=== PATIENT | female | born 1935 | race Caucasian/White ===

== ENCOUNTER 2018-03-13 13:00 | Outpatient (RCR) | payer MEDICARE, SELFPAY | END 2018-03-13 14:39 | disposition home or self-care (01) | LOC: PT 13:00 | PROVIDERS: Visit Provider Family Medicine | DX: R53.1 Weakness (principal); R26.89 Other abnormalities of gait and mobility | CPT/HCPCS: 97110; 97112; 97116; 97164 ==

== ENCOUNTER → 2018-05-21 11:16 | Outpatient (CLI) | payer MEDICARE, SELFPAY ==
[2018-05-21 13:33] LABS: Basophils % 0.4 % (0.1-2.0); Eosinophils # 0.2 K/mm3 (0.0-0.4); Hematocrit 36.2 % (37.0-47.0); Hemoglobin 11.2 g/dL (12.2-16.2); Lymphocytes # 0.7 K/mm3 (0.7-4.5); Mean Corpuscular Hemoglobin 30.5 pg (27.0-31.2); Mean Corpuscular Volume 98.5 fl (81-99); Mean Platelet Volume 8.4 fl (7.4-10.4); Monocytes # 0.3 K/mm3 (0.1-1.0); Neutrophils # 4.5 K/mm3 (1.8-7.8); Neutrophils % 79.6 % (37.0-80.0); Platelet Count 138 K/mm3 (142-424); Red Blood Count 3.68 M/mm3 (4.20-5.40); Red Cell Distribution Width 15.2 % (11.5-17.5); White Blood Count 5.6 K/mm3 (4.8-10.8)
[2018-05-21 14:25] LABS: Alanine Aminotransferase 40 U/L (12-78); Albumin Level 3.2 gm/dL (3.4-5.0); Albumin/Globulin Ratio 1.1 (1.1-1.8); Alkaline Phosphatase 133 U/L (46-116); Anion Gap 11.3 mEq/L (5-15); Aspartate Amino Transferase 24 U/L (15-37); Bilirubin,Total 0.6 mg/dL (0.2-1.0); Blood Urea Nitrogen 15 mg/dL (7-18); Carbon Dioxide 28 mmol/L (21.0-32.0); Chloride 104 mmol/L (98-107); Creatinine,Serum 0.62 mg/dL (0.55-1.02); Estimated Glomerular Filt Rate 92 ml/min (>60); Free T4 (Free Thyroxine) 1.36 ng/dl (0.76-1.46); GFR (African American) 112 ML/MIN (>60); Globulin 2.9 gm/dl (1.3-3.2); Glucose 269 mg/dL (74-106); Potassium 4.3 mmoL/L (3.5-5.1); Sodium 139 mmol/L (136-145); Thyroid Stimulating Hormone 0.03 uIU/ml (0.358-3.740); Total Protein,Serum 6.1 gm/dL (6.4-8.2)
[2018-05-22 07:38] LABS: Folate >20.0 ng/mL (>3.0); Triiodothyronine (T3) Total 72 ng/dL (71-180)
[2018-05-23 07:28] LABS: Vitamin B12 582 pg/mL (232-1245)
== END ==
PROVIDERS: PCP Family Medicine; Visit Provider Specialist
DX: R25.1 Tremor, unspecified (principal)
CPT/HCPCS: 36415; 80053; 82607; 82746; 84439; 84443; 84480; 85025

== ENCOUNTER 2018-11-19 13:00 | Outpatient (RCR) | payer MEDICARE, SELFPAY | END 2018-11-19 16:42 | disposition home or self-care (01) | LOC: PT 13:00 | PROVIDERS: Visit Provider Family Medicine | DX: R53.1 Weakness (principal); R26.89 Other abnormalities of gait and mobility | CPT/HCPCS: 97110; 97112; 97116; 97163 ==

== ENCOUNTER 2019-06-12 13:00 | Outpatient (RCR) | payer MEDICARE, SELFPAY ==
--- NOTE | 2019-05-29 12:11 | [facility].PTOPEV ---
PT Outpatient Evaluation Rehab PT Outpatient Evaluation Start: 05/29/19 11:53 Freq: Status: Active Protocol: Document 05/29/19 11:53 [email or web address] (Rec: 05/29/19 12:11 [email or web address] [id number]) Electronically Signed By Javad Sandoval PT 05/29/19 11:53 Outpatient Therapy Subjective History Subjective History Pt. is a 83 year old female who presents to outpatient PT clinic with reports of chronic LOB during ambulation. Pt. reports she met with her MD on Monday() for a regular check up in which Physical Therapy/ quad cane was ordered. Pt. reports using her qaud cane at all times except for in her house. Pt. denies having any recent falls. Pt. denies fainting, black outs, nor vertigo, but reports orthostatic hypotension with supine to sit and sit to stand . Pt. RTMD in 6 months from . Current medications include Synthroid, Timolol, Metformin ER, Pravastatin, Dorzolamide, Losartan, Eliquis , Carbidopa, Januvia, Coreg, and Gabapentin. PMH includes PMH includes diabetes, uterine cancer, and glaucoma. Chief Complaint Weakness Symptom Type Other Symptoms Relieved By Rest/Positioning,Brace/Support Symptoms Aggravated By Sitting,Standing,Bending/ Stooping,Physical Activity, Walking,Lifting Prior Functional Limitations None Current Functional Limitations Standing,Squatting,Recreation Activity,Walking,Stairs, Balance,Bending/Stooping Symptom Description Activity Dependent Level of pain today (0-10) 0 Pain scale - at its best (0-10) 0 Pain scale - at its worst (0-10) 0 Hip/Knee Eval Gait Observation General Gait Pattern Observation Antalgic Gait,Ataxic Gait, Shuffling Step Assistive Device Assistive Devices Straight Cane MMT bilateral Hip Flexion Strength Grade 4- Good- Hip Abduction Strength Grade 4 Good Hip Adduction Strength Grade 4 Good Hip Extension Strength Grade 4- Good- Gluteus Ma
== END 2019-07-03 14:24 | disposition home or self-care (01) ==
LOC: PT.CARL 13:00
PROVIDERS: PCP Family Medicine; Visit Provider Specialist
DX: G20 Parkinson's disease (principal); R26.9 Unspecified abnormalities of gait and mobility
CPT/HCPCS: 97110; 97116; 97163